=== PATIENT | male | born 1975 ===

== ENCOUNTER 2024-12-12 05:55 | Emergency (ER) | payer OTHER, SELFPAY ==
[2024-12-12 06:06] VITALS: BP 138/66; PULSE 72; RESP 18; TEMP 36.4; O2SAT 96; BMI 32.9
--- NOTE | 2024-12-12 08:08 | ED_ITS ---
HPI - General Adult General Chief complaint: General Medical Stated complaint: body aches Time Seen by Provider: 12/12/24 07:00 History of Present Illness HPI narrative: Patient is a 49-year-old male presented today with having itchiness over the body. Patient denies any new detergents new soaps new clothing new change in environment. No shortness of breath. There is no diaphoresis. There is no change in voice. Patient from home Related Data Previous Rx's ?Medication ?Instructions ?Recorded diphenhydramine HCl 25 mg capsule 25 mg PO Q8H 5 days #15 caps 12/12/24 (Benadryl) famotidine 20 mg tablet (Pepcid) 20 mg PO BID 5 days # 10 tabs 12/12/24 prednisone 20 mg tablet 40 mg (2 x 20 mg) PO DAILY # 10 tabs 12/12/24 Allergies Allergy/AdvReac Type Severity Reaction Status Date / Time apple Allergy Itching Verified 12/12/24 06:09 peach Allergy Itching Verified 12/12/24 06:09 pear Allergy Itching Verified 12/12/24 06:09 Review of Systems Review of Systems: Positive itching Yes all other systems are reviewed and are negative [facility] Past Medical History Attestation statement: The following information was validated with the patient. Social History Social History Smoked in Last 30 Days: No Advance Directives: No Physical Exam ED Vital Signs: Vital Signs - 24 hr 12/12/24 06:06 Temperature 97.6 F Pulse Rate 72 Respiratory Rate 18 Blood Pressure 138/66 Pulse Oximetry 96 Oxygen Delivery Method Room Air BMI result Body Mass Index 32.9 Appearance: Alert. Oriented X3. No acute distress. Eyes: Pupils equal, round and reactive to light. ENT: Pharynx normal. Neck: Normal inspection. Neck supple. No lymph nodes noted. No crepitus CVS: Normal heart rate and rhythm. Pulses normal. Normal S1 and S2 Respiratory: No respiratory distress. Breath sounds normal. No Wheezing. No rales Abdomen: Soft and nontender. No rigidity. No distention. good BS x4 Skin: Minimal [place] area noted over the abdomen. Extremities: No lower extremity edema. Neurovascular intact to all extremities. No Lacerations. No Rash Neuro: Oriented X 3. No motor deficit. No sensory deficit. Moving all extermities. No slurred speech Medical Decision Making Medical Decision Making MDM Narrative: Well-appearing no acute distress no difficulty breathing no change in voice question cause of patient's uteri carry a rash to the abdomen. Will give Benadryl steroid and Pepcid. Patient to follow-up on an outpatient basis. There is no signs of anaphylactic reaction. No distress. Will give same for discharge. In stable condition Differential Diagnosis Differential Diagnoses: The differential diagnosis associated with the presentation includes Anaphylactic reaction, allergic reaction, [place] Admission/Observation Consideration of admission/observation: Escalation of care including admission/observation considered No need to admit reaction localized Lab Data MDM Lab Attestation statement: I reviewed the patient's lab results. Social Determinants Patient?s care significantly limited by Social Determinants of Health including: Problems related to primary support group Discharge Plan Discharge Clinical Impression: Allergic reaction Patient Disposition: Home, Self-Care Instructions: Urticaria (ED) Prescriptions: New diphenhydramine HCl [Benadryl] 25 mg capsule 25 mg PO Q8H 5 Days Qty: 15 0RF prednisone 20 mg tablet 40 mg PO DAILY Qty: 10 0RF famotidine [Pepcid] 20 mg tablet 20 mg PO BID 5 Days Qty: 10 0RF Referrals: [facility] [Physician, Medical] - 1 week Print Language: Uzbek
[2024-12-12 08:38] VITALS: BP 126/72; PULSE 68; RESP 16; TEMP 36.7; O2SAT 96
[2024-12-12 08:42] VITALS: BP 126/72; PULSE 68; RESP 16; TEMP 36.7; O2SAT 96
== END 2024-12-12 08:43 | disposition home or self-care (01) ==
PROVIDERS: Emergency Provider Emergency Medicine Emergency Medical Services
DX: L50.0 Allergic urticaria (principal); M79.10 Myalgia, unspecified site
CPT/HCPCS: 99283; 99284